=== PATIENT | female | born 1950 | race Caucasian/White ===

== ENCOUNTER → 2022-12-07 12:14 | Outpatient (CLI) | payer MEDICARE, SELFPAY ==
--- NOTE | 2022-12-07 | DI.ECHO.S_ITS ---
[place] [facility]---------+ [facility] +---------+ : : [address] : : : : [id number] : : : : Phone: [phone]---------+ Echocardiogram Report + + :Name: SHAD SANTOS Study Date: 12/07/2022 Height: 64 in : :[facility] ReadingLocation: Weight: 300 lb : : Gender: Female BSA: 2.3 m2 : :: 1950 Age: 72 yrs BP: 101/56 mmHg: :Reason For Study: DYSPNEA : :Ordering Physician: AMERICA, : :ELI Valdes Performed By: Cleo Grajeda : :Referring: ELI CROSS : + + Interpretation Summary Normal left ventricle size with ejection fraction 60-65%. The aortic valve is mildly calcified. Mild mitral annular calcification. Procedure: A two-dimensional transthoracic echocardiogram with color flow and Doppler was performed. The study quality was technically adequate. There is no prior echocardiogram noted for this patient. The patient was in sinus rhythm with heart rates between 59-74 bpm during the exam. Left Ventricle: The left ventricle is normal in size and wall thickness. The ejection fraction is estimated to be 60-65%. There are no focal wall motion abnormalities. Right Ventricle: The right ventricle is normal in size and function. Atria: The left atrial size is normal. Right atrial size is normal. There is no Doppler evidence for an interatrial shunt. Mitral Valve: The mitral valve is normal in structure and function. There is mild mitral annular calcification. There is no mitral regurgitation noted. Aortic Valve: The aortic valve is trileaflet. The aortic valve is mildly calcified. There is no aortic valve stenosis. No aortic regurgitation is present. Tricuspid Valve: The tricuspid valve is normal in structure and function. There is trace tricuspid regurgitation. Pulmonary artery pressures cannot be estimated because of the lack of a measurable TR jet velocity. Pulmonic Valve: The pulmonic valve leaflets are thin and pliable; valve motion is normal. There is no pulmonic valvular regurgitation. Great Vessels: The aortic root is normal size. The dimensions of the ascending aorta are normal. The IVC is dilated (diameter is greater than 2.1 cm) yet it collapses greater than 50% with a sniff. This suggests a right atrial pressure of 8 mm Hg. Pericardium/ Pleura There is no pericardial effusion. There is no pleural effusion. MMode/2D Measurements & Calculations LVIDd: 4.8 cm LVOT diam: 2.1 cm LVIDs: 3.2 cm Ao root diam: 2.8 cm FS: 33.5 % asc Aorta Diam: 3.2 cm EPSS: 1.3 cm Ao Arch Diam (Prox Trans): 2.8 cm IVSd: 0.95 cm LVPWd: 0.82 cm LV estrada. diameter/BSA (cm/m^2): 2.1 LV sys. diameter/BSA (cm/m^2): 1.4 LA A2 area: 23.0 cm2 RA long axis: 5.3 cm LA A4 area: 21.4 cm2 RA area: 15.9 cm2 LA length (vol): 6.0 cm RA vol: 40.4 ml LA vol: 69.1 ml RA : 17.4 ml/m2 LA vol index: 29.7 ml/m2 IVC diam: 2.2 cm RVD1 (basal): 3.3 cm RVD2 (mid): 2.7 cm TAPSE: 2.0 cm Doppler Measurements & Calculations Ao V2 max: 164.8 cm/sec LVOT Max Quang: 111.5 cm/sec Ao V2 mean: 112.9 cm/sec LV V1 max P.0 mmHg Ao max P.9 mmHg LV V1 VTI: 24.1 cm Ao mean P.7 mmHg AMADOR(I,D): 2.3 cm2 Ao V2 VTI: 36.1 cm AMADOR(V,D): 2.3 cm2 sev ratio: 0.67 AMADOR indexed to BSA (cm^2/m^2): 0.97 MV E max quang: 92.2 cm/sec PA V2 max: 89.8 cm/sec MV A max quang: 91.2 cm/sec PA V2 mean: 67.1 cm/sec MV E/A: 1.0 PA mean P.9 mmHg Med Peak E' Quang: 6.4 cm/sec PA pr(Accel): 37.9 mmHg E/E' med: 14.4 Lat Peak E' Quang: 9.6 cm/sec E/E' lat: 9.6 E/e' average: 12.0 MV dec time: 0.20 sec SV(LVOT): 81.4 ml Electronically signed by: Nakul Dumont on Reading Physician:12/07/2022 04:13 PM
== END ==
PROVIDERS: Family Provider Internal Medicine; PCP Internal Medicine; Referring Provider Internal Medicine; Visit Provider Internal Medicine
DX: R06.09 Other forms of dyspnea (principal)
CPT/HCPCS: 93306

== ENCOUNTER → 2023-03-29 13:13 | Outpatient (CLI) | payer MEDICARE, SELFPAY ==
--- NOTE | 2023-03-30 22:14 | DI.NM.S_ITS ---
DATE OF SERVICE: 03/29/2023 PROCEDURE: Pharmacologic vasodilator stress and rest myocardial perfusion imaging with gating to assess ejection fraction and regional wall motion. ORDERING PROVIDER: Carina Obando MD INDICATIONS: The patient is a 73-year-old morbidly obese female with exercise intolerance and a history of atrial flutter with atypical chest discomfort. PHARMACOLOGIC VASODILATOR STRESS: Per protocol, 0.4 mg of regadenoson was infused with a normal hemodynamic response. She developed mild chest heaviness and dyspnea. The resting ECG showed sinus rhythm with an RBBB and occasional PACs but normal ST segments. There were no significant ST-segment shifts or arrhythmias with stress. Per protocol, 25.8 millicuries of technetium-99m Myoview was injected and she was imaged 10 minutes later using a gated SPECT acquisition protocol. The day prior, she had been injected with 26.5 millicuries of technetium-99m Myoview while at rest and was imaged 15 minutes later using a gated SPECT acquisition protocol. FINDINGS: 1. Raw data: There is fair myocardial tracer uptake but very prominent breast shadows clearly produce significant attenuation artifact. The lung/heart ratio is normal at 0.33 with a normal TID ratio of 0.97. 2. Quantitated gated SPECT: Post-stress ejection fraction is estimated at 68% without any focal wall motion abnormality. The resting ejection fraction is 67% with a borderline increased end-diastolic volume of 115 mL. There is increased tracer activity of the right ventricular free wall with borderline right ventricular enlargement, which can be an indication of a right ventricular overload condition, but clinical correlation is recommended. 3. Myocardial perfusion imaging: Post-stress supine images show a fairly normal myocardial perfusion pattern without any significant perfusion defects. The patient was unable to lie prone to assess for any diaphragmatic attenuation. The resting images show a similar perfusion pattern without any obvious areas of improvement. IMPRESSION: 1. Normal myocardial perfusion study for ischemia. 2. No evidence of myocardial ischemia or previous myocardial infarction. 3. Normal left ventricular systolic function with borderline increased left ventricular volumes. There is borderline increased right ventricular size with increased tracer uptake of the right ventricular free wall which can be an indication of a right ventricular overload condition but clinical correlation is recommended. 4. Vague chest discomfort and dyspnea with regadenoson infusion but no ECG evidence of ischemia. She had occasional PACs but no complex ectopy. Anastasia Mckeon - RS/fn/MICHELLE doc#: [id number]/job#: [id number] dd: 03/30/2023 16:41:00 dt: 03/30/2023 21:57:00 DICTATING MD/COPIES TO: Conrado Segal MD; Carina Obando MD COPIES MNE: [id number];
== END ==
PROVIDERS: Family Provider Internal Medicine; PCP Internal Medicine; Referring Provider Internal Medicine; Visit Provider Internal Medicine
DX: R07.89 Other chest pain (principal); I48.92 Unspecified atrial flutter; E66.01 Morbid (severe) obesity due to excess calories; R25.2 Cramp and spasm; E87.6 Hypokalemia
CPT/HCPCS: 78452; 93017; A9502; J2785